=== PATIENT | female | born 1940 | race Caucasian/White ===

== ENCOUNTER 2017-12-03 16:07 | Inpatient (IN) | payer MEDICARE ==
[2017-12-03 17:37] LABS: Bilirubin Negative (Negative); Blood, Urine Negative (Negative); Clarity CLEAR (Clear); Glucose, Urine (Dipstick) >=1000 mg/dL (Negative); Leukocyte Negative (Negative); Nitrite Negative (Negative); Protein, Urine (Dipstick) Negative (Neg-Trace); Specific Gravity, Urine 1.031 (1.002-1.036)
[2017-12-03] MEDS ORDERED: Acetaminophen 325 MG TAB PO PRN (19:07)
[2017-12-03] MEDS ORDERED: Dextrose 5% in Water 1,000 ML IV PRN (19:07)
[2017-12-03] MEDS ORDERED: HYDROcodone/Acetaminophen 5/325 mg Tablet PO PRN (19:07)
[2017-12-03] MEDS ORDERED: Ondansetron ODT 4 MG TAB PO PRN (19:07)
[2017-12-03] MEDS ORDERED: Dextrose 50% Abboject 50 ML SYRINGE SLOW IVP PRN (19:07)
[2017-12-03] MEDS ORDERED: HYDROcodone/Acetaminophen 10/325 mg Tablet PO PRN (19:07)
[2017-12-03] MEDS ORDERED: Albuterol Sulfate 2.5 mg/3 ml Neb NEB PRN (19:11)
[2017-12-03 19:13] VITALS: BMI 41.4
[2017-12-03] MEDS ORDERED: Enoxaparin Sodium 40 MG/0.4 ML SYRINGE SC SCH (19:15)
[2017-12-03] MEDS: Simvastatin 5 MG TAB PO SCH (19:54)
[2017-12-03] MEDS: Nicotine 14 MG PATCH TD SCH (20:01)
[2017-12-03] MEDS: Brimonidine Tartrate 0.2% Ophth Soln 5 ml Bottle EA EYE SCH (21:10)
[2017-12-03] MEDS: Latanoprost 0.005% Ophth Soln 2.5 ml Bottle EA EYE SCH (21:10)
[2017-12-03] MEDS: HumaLOG 300 UNITS/3 ML VIAL SC PRN (21:12)
--- NOTE | 2017-12-03 23:19 | HP ---
TIME OF SERVICE: 1740. PRIMARY CARE PHYSICIAN: Dr. Salinas. CHIEF COMPLAINT: Shortness of breath. HISTORY OF PRESENT ILLNESS: Ms. Andino is a 77-year-old female transferred from the [facility]. She was actually admitted there from 11/16-11/25 for acute exacerbation of COPD. She received an tibiotics, steroids, nebulizer treatments, and was converted from inpatient to a swing bed for rehabi litation and discharged back to her assisted living facility on 11/25. She returned to the Emergency Department tonight for shortness of breath starting this afternoon. Sh e was notably 75% on room air, 88% on 2 liters and requiring 4 liters to get to 95%. She was subsequently transferred here. Her D-dimer there had been elevated at 0.75, CT angio showed right middle lobe pneumonia and she was sent here for "failure of outpatient therapy." On arrival here, she is afebrile. Vitals are stable. She is satting 95% on 4 liters and breathing c omfortably. She continues to smoke. She says she only smokes about 1/4 pack of cigarettes per day at present. S he did not tell me how much she smokes on a regular basis. No chest pain, no fevers or chills or rigors. No nausea, vomiting, diarrhea or constipation. PAST MEDICAL HISTORY: 1. COPD. 2. Tobacco abuse, ongoing. 3. Diabetes mellitus type 2, insulin-dependent. 4. Glaucoma. 5. Hyperlipidemia. 6. Hypertension. 7. Obesity. 8. Iron deficiency anemia. PAST SURGICAL HISTORY: Include; 1. Cholecystectomy in 1979. 2. Appendectomy in 1969. 3. Right cataract repair/lens replacement in 2006. HOME MEDICATIONS: 1. Norvasc 5 mg p.o. daily. 2. Aspirin 81 mg daily. 3. Benazepril 40 mg p.o. daily. 4. Dulcolax 5 mg p.o. daily with Alphagan 0.2% one drop each eye b.i.d. 5. Budesonide 180 mcg inhaler 2 puffs inhaled b.i.d. 6. DuoNeb q.4 hours. 7. Xalatan 0.005% 1 drop each eye at bedtime. 8. Metformin 1000 mg p.o. b.i.d. 9. Protonix 40 mg daily. 10. MiraLax 17 grams p.o. daily. 11. Prednisone taper. 12. Zocor 5 mg p.o. at bedtime. 13. Ultracet one tablet q.6 hours p.r.n. 14. Albuterol MDI p.r.n. 15. On 11/22, she was given some Kenalog. It looks like Kenalog cream. ALLERGIES: PENICILLIN, QUININE and SULFA. She has recently been on Bactrim and tolerated that fine. Despite this "SULFA allergy" FAMILY HISTORY: Significant for hypertension and COPD. No premature coronary disease. No history o f clotting or bleeding disorder. No immune dysfunction. SOCIAL HISTORY: Significant for tobacco ongoing as above. No alcohol or drug use. She lives in an assisted living center in [place]. She has smoked for over 50 years. REVIEW OF SYSTEMS: A 10-point review of systems was performed and negative for all other systems exc ept stated as per HPI. PHYSICAL EXAMINATION: VITAL SIGNS: Temperature 98.1, pulse 74, blood pressure 115/64, respiratory rate 20, satting 95% on 5 liters. GENERAL: She is awake. She is alert. She is oriented x3. She is an obese older white female, who appears to be in no acute distress. HEENT: Normocephalic and atraumatic. Pupils are equal and reactive bilaterally, mucous membranes ar e moist. She has no visible lesions, no thrush. Nasal cannula is in place. NECK: Supple, without lymphadenopathy, JVD, or thyromegaly with normal carotid upstrokes. I do not appreciate bruits. LUNGS: Has a slightly prolonged expiratory phase. No rhonchi. She does have some right lateral shona nt crackles. She has a slight end expiratory high-pitched wheezing. CARDIOVASCULAR: She is slightly tachycardic, but regular. Normal S1 and S2. She has a 2/6 systolic ejection murmur and 3/6 holosystolic murmur at the apex. The systolic ejection murmur is at the rig ht upper sternal border. ABDOMEN: Obese and it is nontender and nondistended with good bowel sounds. She has no rebound, rig idity or guarding. EXTREMITIES: Show no cyanosis, no clubbing, with 1+ bilateral lower extremity edema to the mid tibia l level. SKIN: Warm, moist and well perfused. No rashes, no lesions. MUSCULOSKELETAL: Normal to inspection. She has no joint inflammation. There were no palpable effus ions. NEUROLOGIC: Cranial nerves II-XII are grossly intact. She has normal speech pattern. She has 5/5 s trength and no focal deficits. LABORATORY DATA: Sodium 134, potassium 4.6, chloride 91, bicarbonate 33, BUN 6, creatinine 0.61, and glucose 218. Liver functions normal except for a total protein of 5.8 and albumin of 3.2. CBC show ed a white count normal at 7.2, hemoglobin 12.8, hematocrit 39.2 and platelets 386,000. She had a fa irly normal differential, 79% granulocytes, 1% bands, 9% lymphocytes, and 8% atypical lymphocytes. IMAGING DATA: CT angio showed a patchy right middle lobe infiltrate. Chest x-ray is unremarkable. ASSESSMENT AND PLAN: 1. Right middle lobe atypical infiltrate. The patient was recently treated with antibiotics, but we do not know which ones. We will place her on Levaquin, she has a normal white count and afebrile. We will repeat labs in the morning. 2. Acute exacerbation of chronic obstructive pulmonary disease, convert back to IV steroids with Stacey u-Medrol, q.4 hours DuoNebs and q.2 hours p.r.n., albuterol nebs. We will follow up in the morning. 3. Acute hypoxemic respiratory failure: Recurrent. She just weaned off oxygen. She is back on oxy gen now 4-5 liters. She may need oxygen in the foreseeable future. 4. Diabetes mellitus type 2. We will continue home medications, insulin sliding scale and diabetic diet. 5. Glaucoma. Continue drops. 6. Hyperlipidemia. We will continue her antihyperlipidemics. 7. Hypertension. We will continue home medications at present. The patient will be admitted to inpatient medical christy. We will follow up in the morning.
[2017-12-04 05:40] LABS: Anion Gap 12 mmol/L (10-20); BUN (Urea Nitrogen) 6 mg/dL (9.8-20.1); Calc. Creatinine Clearance 121 mL/min (70-130); Calcium 8.6 mg/dL (7.8-10.44); Carbon Dioxide 31 mmol/L (23-31); Chloride 95 mmol/L (98-107); Estimated GFR-MDRD Greater than 90; Glucose 229 mg/dL (83-110); Magnesium 1.6 mg/dL (1.6-2.6); Potassium 3.8 mmol/L (3.5-5.1); Sodium 134 mmol/L (136-145)
[2017-12-04] MEDS: HumaLOG 300 UNITS/3 ML VIAL SC PRN ×3 (05:52→16:56)
[2017-12-04 06:08] LABS: Band 2 % (5-11); Hemoglobin 12.6 g/dL (12.0-16.0); Lymphocytes 10 % (21-51); MDiff Complete? YES; Mean Corpuscular HGB CONC 31.1 g/dL (32.0-36.0); Mean Corpuscular Hemoglobin 29.4 pg (27.0-31.0); Mean Corpuscular Volume 94.4 fl (81.0-99.0); Mean Platelet Volume 6.7 fL (7.4-10.4); Monocytes 9 % (0-10); Neutrophil 79 % (42-75); Platelet Count 372 thou/uL (130-400); RBC Distribution Width 14.4 % (11.5-14.5); White Blood Cell (WBC) Count 3.4 thou/uL (4.8-10.8)
[2017-12-04] MEDS: metFORMIN 500 MG TAB PO SCH ×2 (08:26→16:55)
[2017-12-04] MEDS: Enoxaparin Sodium 40 MG/0.4 ML SYRINGE SC SCH (08:26)
[2017-12-04] MEDS: Aspirin 81 mg Enteric Coated Tablet PO SCH (08:26)
[2017-12-04] MEDS: Amlodipine 5 MG TAB PO SCH (08:27)
[2017-12-04] MEDS: Brimonidine Tartrate 0.2% Ophth Soln 5 ml Bottle EA EYE SCH ×2 (08:28→20:26)
[2017-12-04] MEDS: Bisacodyl 5 MG TAB PO SCH (08:28)
[2017-12-04] MEDS: Polyethylene Glycol 3350 17 GM Packet PO SCH (08:38)
[2017-12-04] MEDS ORDERED: Prevnar 13-Val Conj/PF 0.5 ML SYRINGE IM ONE (09:00)
[2017-12-04] MEDS ORDERED: FLU VACC TS2017-18 (>65YR) 0.5 ML SYRINGE IM ONE (09:00)
[2017-12-04] MEDS ORDERED: Magnesium 2 GM/NS 0.9% 50 ML 2 GM in Premix Bag 1 BAG IVPB SCH (09:00)
[2017-12-04] MEDS ORDERED: Magnesium 2 GM/NS 0.9% 100 ML 2 GM in Premix Bag 1 BAG IVPB SCH (10:00)
--- NOTE | 2017-12-04 14:26 | PDOC.PN ---
- Subjective Encounter Start Date: 12/04/17 Encounter Start Time: 11:40 Pt states breathing is better. No f/C, no n/V/D/C, no cough or sputum production. Wants to get up and walk. No overnight events, no new complaints 10 point ROS performed and neg for all systems except as per HPI - Objective Resuscitation Status: Resuscitation Status FULL:Full Resuscitation MAR Reviewed: Yes Vital Signs & Weight: Vital Signs (12 hours) Temp Pulse Resp BP BP Pulse Ox 12/04/17 13:43 101 H 18 91 L 12/04/17 13:34 97.8 F 103 H 20 112/68 92 L 12/04/17 08:30 137/79 12/04/17 08:27 99 137/79 12/04/17 08:00 98.1 F 99 18 137/79 93 L 12/04/17 07:13 97.9 F 85 16 12/04/17 06:11 85 16 92 L 12/04/17 04:00 97.9 F 96 18 149/72 H 93 L 12/04/17 02:41 92 16 94 L Weight Weight 184 lb 12.8 oz I&O: 12/03/17 12/04/17 12/05/17 06:59 06:59 06:59 Intake Total 1070 Balance 1070 Result Diagrams: 12/04/17 05:01 12/04/17 05:01 Additional Labs: Accuchecks 12/04/17 12/04/17 12/03/17 11:15 05:39 21:00 POC Glucose 299 H 201 H 270 H Radiology Reviewed by me: Yes EKG Reviewed by me: Yes Phys Exam - Physical Examination Constitutional: NAD HEENT: PERRLA, moist MMs, sclera anicteric, oral pharynx no lesions Neck: no nodes, no JVD, supple, full ROM Respiratory: no rales, no rhonchi end expiratory wheezes present, slightly prolonged expiration Cardiovascular: RRR, no significant murmur, no rub Gastrointestinal: soft, non-tender, no distention, positive bowel sounds Musculoskeletal: no edema, pulses present Neurological: non-focal, normal sensation, moves all 4 limbs Lymphatic: no nodes Psychiatric: normal affect, A&O x 3 Skin: no rash, normal turgor, cap refill <2 seconds Dx/Plan (1) Acute exacerbation of chronic obstructive pulmonary disease (COPD) Code(s): J44.1 - CHRONIC OBSTRUCTIVE PULMONARY DISEASE W (ACUTE) EXACERBATION Status: Acute Comment: nebs, steroids, O2. less O2 requirements today. mobilize (2) Diabetes type 2, controlled Code(s): E11.9 - TYPE 2 DIABETES MELLITUS WITHOUT COMPLICATIONS Status: Chronic Qualifiers: Diabetes mellitus complication status: without complication Diabetes mellitus multiple games dealer insulin use: without nursing home use Qualified Code(s): E11.9 - Type 2 diabetes mellitus without complications (3) Dyslipidemia Code(s): E78.5 - HYPERLIPIDEMIA, UNSPECIFIED Status: Chronic (4) Fe deficiency anemia Code(s): D50.9 - IRON DEFICIENCY ANEMIA, UNSPECIFIED Status: Chronic Qualifiers: Iron deficiency anemia type: chronic blood loss Qualified Code(s): D50.0 - Iron deficiency anemia secondary to blood loss (chronic) Comment: symptomatic anemia, s/p 2 unit PRBC (5) Glaucoma Code(s): H40.9 - UNSPECIFIED GLAUCOMA Status: Chronic Qualifiers: Glaucoma type: unspecified Laterality: bilateral Qualified Code(s): H40.9 - Unspecified glaucoma (6) Hypertension Code(s): I10 - ESSENTIAL (PRIMARY) HYPERTENSION Status: Chronic Qualifiers: Hypertension type: essential hypertension Qualified Code(s): I10 - Essential (primary) hypertension (7) Obesity (BMI 30.0-34.9) Code(s): E66.9 - OBESITY, UNSPECIFIED Status: Chronic (8) Osteoarthritis Code(s): M19.90 - UNSPECIFIED OSTEOARTHRITIS, UNSPECIFIED SITE Status: Chronic Qualifiers: Osteoarthritis location: unspecified site (9) Tobacco abuse Code(s): Z72.0 - TOBACCO USE Status: Chronic Comment: ongloing, no plan to stop - Plan cont current plan of care, continue antibiotics, PT/OT, respiratory therapy, out of bed/ambulate * .
--- NOTE | 2017-12-04 16:12 | PDOC.PN ---
- Subjective Encounter Start Date: 12/04/17 Encounter Start Time: 11:40 PT breathing better, weaned down to 2L NC, some cough, no CP, no f/C, no n/V/D/C , sputum yellowish. 10 point ROS performed and neg for all systems except as per HPI - Objective Resuscitation Status: Resuscitation Status FULL:Full Resuscitation MAR Reviewed: Yes Vital Signs & Weight: Vital Signs (12 hours) Temp Pulse Resp BP BP Pulse Ox 12/04/17 13:43 101 H 18 91 L 12/04/17 13:34 97.8 F 103 H 20 112/68 92 L 12/04/17 08:30 137/79 12/04/17 08:27 99 137/79 12/04/17 08:00 98.1 F 99 18 137/79 93 L 12/04/17 07:13 97.9 F 85 16 12/04/17 06:11 85 16 92 L Weight Weight 184 lb 12.8 oz I&O: 12/03/17 12/04/17 12/05/17 06:59 06:59 06:59 Intake Total 1070 Balance 1070 Result Diagrams: 12/05/17 04:56 12/05/17 04:56 Additional Labs: Accuchecks 12/04/17 12/04/17 12/03/17 11:15 05:39 21:00 POC Glucose 299 H 201 H 270 H Radiology Reviewed by me: Yes EKG Reviewed by me: Yes Phys Exam - Physical Examination Constitutional: NAD HEENT: PERRLA, moist MMs, sclera anicteric, oral pharynx no lesions Neck: no nodes, no JVD, supple, full ROM Respiratory: no wheezing, no rales, no rhonchi slightly prolonged expiration Cardiovascular: RRR, no significant murmur, no rub Gastrointestinal: soft, non-tender, no distention, positive bowel sounds Musculoskeletal: pulses present, edema present Neurological: non-focal, normal sensation, moves all 4 limbs Lymphatic: no nodes Psychiatric: normal affect, A&O x 3 Skin: no rash, normal turgor, cap refill <2 seconds Dx/Plan (1) Acute exacerbation of chronic obstructive pulmonary disease (COPD) Code(s): J44.1 - CHRONIC OBSTRUCTIVE PULMONARY DISEASE W (ACUTE) EXACERBATION Status: Acute Comment: nebs, steroids, O2. less O2 requirements today. mobilize (2) Diabetes type 2, controlled Code(s): E11.9 - TYPE 2 DIABETES MELLITUS WITHOUT COMPLICATIONS Status: Chronic Qualifiers: Diabetes mellitus complication status: without complication Diabetes mellitus termite renewal inspector insulin use: without senior care use Qualified Code(s): E11.9 - Type 2 diabetes mellitus without complications (3) Dyslipidemia Code(s): E78.5 - HYPERLIPIDEMIA, UNSPECIFIED Status: Chronic (4) Fe deficiency anemia Code(s): D50.9 - IRON DEFICIENCY ANEMIA, UNSPECIFIED Status: Chronic Qualifiers: Iron deficiency anemia type: chronic blood loss Qualified Code(s): D50.0 - Iron deficiency anemia secondary to blood loss (chronic) Comment: symptomatic anemia, s/p 2 unit PRBC (5) Glaucoma Code(s): H40.9 - UNSPECIFIED GLAUCOMA Status: Chronic Qualifiers: Glaucoma type: unspecified Laterality: bilateral Qualified Code(s): H40.9 - Unspecified glaucoma (6) Hypertension Code(s): I10 - ESSENTIAL (PRIMARY) HYPERTENSION Status: Chronic Qualifiers: Hypertension type: essential hypertension Qualified Code(s): I10 - Essential (primary) hypertension (7) Obesity (BMI 30.0-34.9) Code(s): E66.9 - OBESITY, UNSPECIFIED Status: Chronic (8) Osteoarthritis Code(s): M19.90 - UNSPECIFIED OSTEOARTHRITIS, UNSPECIFIED SITE Status: Chronic Qualifiers: Osteoarthritis location: unspecified site (9) Tobacco abuse Code(s): Z72.0 - TOBACCO USE Status: Chronic Comment: ongoing, no plan to stop - Plan cont current plan of care, continue antibiotics, PT/OT, respiratory therapy, out of bed/ambulate * .
[2017-12-04] MEDS: Nicotine 14 MG PATCH TD SCH (19:13)
[2017-12-04] MEDS: Simvastatin 5 MG TAB PO SCH (20:25)
[2017-12-04] MEDS: Latanoprost 0.005% Ophth Soln 2.5 ml Bottle EA EYE SCH (20:26)
[2017-12-05 05:36] LABS: Anion Gap 13 mmol/L (10-20); BUN (Urea Nitrogen) 8 mg/dL (9.8-20.1); Calc. Creatinine Clearance 109 mL/min (70-130); Calcium 9.1 mg/dL (7.8-10.44); Carbon Dioxide 33 mmol/L (23-31); Chloride 95 mmol/L (98-107); Estimated GFR-MDRD Greater than 90; Glucose 234 mg/dL (83-110); Magnesium 1.8 mg/dL (1.6-2.6); Potassium 3.7 mmol/L (3.5-5.1); Sodium 137 mmol/L (136-145)
[2017-12-05] MEDS: HumaLOG 300 UNITS/3 ML VIAL SC PRN ×3 (05:45→17:13)
[2017-12-05 05:46] LABS: Band 8 % (5-11); Hemoglobin 12.9 g/dL (12.0-16.0); Lymphocytes 5 % (21-51); MDiff Complete? YES; Mean Corpuscular HGB CONC 31.6 g/dL (32.0-36.0); Mean Corpuscular Hemoglobin 29.7 pg (27.0-31.0); Mean Corpuscular Volume 94.1 fl (81.0-99.0); Mean Platelet Volume 6.8 fL (7.4-10.4); Monocytes 5 % (0-10); Neutrophil 82 % (42-75); Platelet Count 421 thou/uL (130-400); RBC Distribution Width 14.6 % (11.5-14.5); Red Blood Cell (RBC) Count 4.33 mill/uL (4.20-5.40); White Blood Cell (WBC) Count 6.4 thou/uL (4.8-10.8)
[2017-12-05] MEDS: Polyethylene Glycol 3350 17 GM Packet PO SCH (08:19)
[2017-12-05] MEDS: Brimonidine Tartrate 0.2% Ophth Soln 5 ml Bottle EA EYE SCH ×2 (08:19→20:15)
[2017-12-05] MEDS: metFORMIN 500 MG TAB PO SCH ×2 (08:19→17:12)
[2017-12-05] MEDS: Aspirin 81 mg Enteric Coated Tablet PO SCH (08:20)
[2017-12-05] MEDS: Bisacodyl 5 MG TAB PO SCH (08:20)
[2017-12-05] MEDS: Amlodipine 5 MG TAB PO SCH (08:20)
[2017-12-05] MEDS: Enoxaparin Sodium 40 MG/0.4 ML SYRINGE SC SCH (08:21)
--- NOTE | 2017-12-05 12:53 | PDOC.PN ---
- Subjective Encounter Start Date: 12/05/17 Encounter Start Time: 10:30 Pt sleeping soundly, no overnight event,s no wheezing, no CP, no SOB, getting up and around the room without problems. No F/C, cough, no sputum, no abd pain , no N/v/D/C 10 point ROS performed and neg for all systems except as above - Objective Resuscitation Status: Resuscitation Status FULL:Full Resuscitation MAR Reviewed: Yes Vital Signs & Weight: Vital Signs (12 hours) Temp Pulse Resp BP Pulse Ox 12/05/17 12:39 90 L 12/05/17 08:00 97.2 F L 104 H 16 124/74 93 L 12/05/17 07:05 100 16 92 L 12/05/17 01:39 12 Weight Weight 184 lb 12.8 oz I&O: 12/04/17 12/05/17 12/06/17 06:59 06:59 06:59 Intake Total 1070 1320 Output Total 0 Balance 1070 1320 Result Diagrams: 12/05/17 04:56 12/05/17 04:56 Additional Labs: Accuchecks 12/05/17 12/05/17 12/04/17 11:16 04:29 20:39 POC Glucose 258 H 188 H 189 H 12/04/17 16:36 POC Glucose 209 H Radiology Reviewed by me: Yes Phys Exam - Physical Examination Constitutional: NAD HEENT: PERRLA, moist MMs, sclera anicteric, oral pharynx no lesions Neck: no nodes, no JVD, supple, full ROM Respiratory: no wheezing, no rales, no rhonchi, clear to auscultation bilateral Cardiovascular: RRR, no significant murmur, no rub Gastrointestinal: soft, non-tender, no distention, positive bowel sounds Musculoskeletal: pulses present, edema present Neurological: non-focal, normal sensation, moves all 4 limbs Lymphatic: no nodes Psychiatric: normal affect, A&O x 3 Skin: no rash, normal turgor, cap refill <2 seconds Dx/Plan (1) Acute exacerbation of chronic obstructive pulmonary disease (COPD) Code(s): J44.1 - CHRONIC OBSTRUCTIVE PULMONARY DISEASE W (ACUTE) EXACERBATION Status: Acute Comment: nebs, steroids, O2. 2L NC. home O2 eval. Home when arranged (2) Diabetes type 2, controlled Code(s): E11.9 - TYPE 2 DIABETES MELLITUS WITHOUT COMPLICATIONS Status: Chronic Qualifiers: Diabetes mellitus complication status: without complication Diabetes mellitus senior care insulin use: without senior care use Qualified Code(s): E11.9 - Type 2 diabetes mellitus without complications (3) Dyslipidemia Code(s): E78.5 - HYPERLIPIDEMIA, UNSPECIFIED Status: Chronic (4) Fe deficiency anemia Code(s): D50.9 - IRON DEFICIENCY ANEMIA, UNSPECIFIED Status: Chronic Qualifiers: Iron deficiency anemia type: chronic blood loss Qualified Code(s): D50.0 - Iron deficiency anemia secondary to blood loss (chronic) Comment: symptomatic anemia, s/p 2 unit PRBC (5) Glaucoma Code(s): H40.9 - UNSPECIFIED GLAUCOMA Status: Chronic Qualifiers: Glaucoma type: unspecified Laterality: bilateral Qualified Code(s): H40.9 - Unspecified glaucoma (6) Hypertension Code(s): I10 - ESSENTIAL (PRIMARY) HYPERTENSION Status: Chronic Qualifiers: Hypertension type: essential hypertension Qualified Code(s): I10 - Essential (primary) hypertension (7) Obesity (BMI 30.0-34.9) Code(s): E66.9 - OBESITY, UNSPECIFIED Status: Chronic (8) Osteoarthritis Code(s): M19.90 - UNSPECIFIED OSTEOARTHRITIS, UNSPECIFIED SITE Status: Chronic Qualifiers: Osteoarthritis location: unspecified site (9) Tobacco abuse Code(s): Z72.0 - TOBACCO USE Status: Chronic Comment: ongoing, no plan to stop - Plan cont current plan of care, PT/OT, respiratory therapy, out of bed/ambulate * .
[2017-12-05] MEDS: Nicotine 14 MG PATCH TD SCH (18:34)
[2017-12-05] MEDS: Latanoprost 0.005% Ophth Soln 2.5 ml Bottle EA EYE SCH (20:15)
[2017-12-05] MEDS: Simvastatin 5 MG TAB PO SCH (20:15)
[2017-12-06] MEDS: HumaLOG 300 UNITS/3 ML VIAL SC PRN (07:13)
[2017-12-06] MEDS: Aspirin 81 mg Enteric Coated Tablet PO SCH (08:10)
[2017-12-06] MEDS: Bisacodyl 5 MG TAB PO SCH (08:10)
[2017-12-06] MEDS: Polyethylene Glycol 3350 17 GM Packet PO SCH (08:10)
[2017-12-06] MEDS: metFORMIN 500 MG TAB PO SCH (08:10)
[2017-12-06] MEDS: Amlodipine 5 MG TAB PO SCH (08:10)
[2017-12-06] MEDS: Enoxaparin Sodium 40 MG/0.4 ML SYRINGE SC SCH (08:11)
[2017-12-06] MEDS: Brimonidine Tartrate 0.2% Ophth Soln 5 ml Bottle EA EYE SCH (08:11)
[2017-12-06 11:17] VITALS: BP 136/77; TEMP 98.1
--- NOTE | 2017-12-06 21:03 | DIS ---
DATE OF ADMISSION: 12/03/2017 DATE OF DISCHARGE: 12/06/2017 PRIMARY CARE PHYSICIAN: Dr. Ifrah aSlinas. DISCHARGE DIAGNOSES: 1. Right middle lobe pneumonia. 2. Acute exacerbation of chronic obstructive pulmonary disease. 3. Acute hypoxemic respiratory failure. 4. Ongoing tobacco abuse. 5. Chronic obstructive pulmonary disease. 6. Diabetes mellitus type 2, insulin-dependent. 7. Glaucoma. 8. Hyperlipidemia. 9. Hypertension. 10. Severe obesity. 11. Iron deficiency anemia. CONSULTATIONS: None. PROCEDURES: None. HOSPITAL COURSE: Ms. Andino is a pleasant 77-year-old white female who was recently admitted to [facility] there for acute exacerbation of COPD and influenza. She was discharged home from initial inpatient and then a swing bed rehabilitation status on 11/25. She got progressively more short of breath and presented to our Emergency Department in transfer on 0 12/03/2017 for further evaluation. She was found to be in some respiratory distress, right middle lob e pneumonia, hypoxic and was admitted. HOSPITAL COURSE: The patient was seen and examined by me in the Emergency Department, she started ba ck on IV steroids, neb treatments, IV antibiotics and was admitted to the hospital. On 12/03-09/03, the patient markedly improved. Breathing was almost back to her baseline, but was st ill requiring oxygen. She was given antibiotics, nebs and steroids. By, 12/05, her breathing status was continued to impro ve. She was down to 2 liters of oxygen and was asking when she got to go home. She was arranged for home oxygen, was found to be in the mid 80s on room air, and by 12/06, home oxygen was set up, and s he was stable for discharge back to her assisted living facility. PHYSICAL EXAMINATION: The patient was seen and examined on the day of discharge. Discharge plan and disposition were discussed with the patient [id number] at the bedside. DISCHARGE MEDICATIONS: 1. Tylenol Arthritis as needed. 2. Albuterol 2.5 mg nebulized every 2 hours as needed for shortness of breath. 3. Albuterol sulfate inhaler 2 puffs every 6 hours as needed when not on the nebs. 4. Norvasc 5 mg daily. 5. Aspirin 81 mg daily. 6. Benazepril 40 mg daily. 7. Tessalon 100 mg p.o. t.i.d. p.r.n. cough. 8. Bisacodyl 5 mg daily. 9. Brimonidine tartrate/atenolol 1 drop each eye b.i.d. 10. Fish oil 1000 mg p.o. daily. 11. DuoNebs 3 mL q.i.d. nebulized q.i.d. 12. Xalatan 0.005% one drop each eye at bedtime. 13. Levofloxacin 750 mg p.o. day for 3 more days. 14. Metformin 1000 mg p.o. b.i.d. 15. Protonix 40 mg daily. 16. MiraLax 17 grams daily. 17. Prednisone 20 mg p.o. q.a.m. 18. Zocor 5 mg p.o. at bedtime. 19. Tramadol/acetaminophen 1 tab daily as needed for pain. FOLLOWUP APPOINTMENTS: Primary care physician within a week. DISCHARGE CONDITION: Good. DISCHARGE DISPOSITION: Being discharged to [facility] with home O2. DISCHARGE DIET: Heart healthy recommended. DISCHARGE ACTIVITY: As tolerated. We have recommended the patient stop smoking, but she has no inte ntion.
== END 2017-12-06 12:21 | disposition home health service (06) | DRG 193 ==
LOC: ERS 16:07 → T4-B 17:12
PROVIDERS: ADMIT Internal Medicine Infectious Disease; ATTEND Internal Medicine Infectious Disease
DX: J18.1 Lobar pneumonia, unspecified organism (principal); J96.01 Acute respiratory failure with hypoxia; J44.0 Chronic obstructive pulmonary disease with (acute) lower respiratory infection; Z68.41 Body mass index [BMI] 40.0-44.9, adult; E11.9 Type 2 diabetes mellitus without complications; D50.0 Iron deficiency anemia secondary to blood loss (chronic); J44.1 Chronic obstructive pulmonary disease with (acute) exacerbation; Z99.81 Dependence on supplemental oxygen; F17.210 Nicotine dependence, cigarettes, uncomplicated; H40.9 Unspecified glaucoma; E66.9 Obesity, unspecified; Z79.4 Long term (current) use of insulin; I10 Essential (primary) hypertension
CPT/HCPCS: 36415; 36416; 80048; 81003; 83605; 83735; 85025; 87040; 87086; 94640; 96365; A4216; J1650; J1956; J2920; J3370; J3475; J7620

== ENCOUNTER 2017-12-16 16:02 | Observation (INO) | payer MEDICARE ==
[2017-12-16] MEDS ORDERED: ISOVUE-370 76%-LOCM 1 ML ONE (16:47)
[2017-12-16 18:37] LABS: #Basophils 0.1 thou/uL (0.0-0.2); #Eosinphils 0.1 thou/uL (0.0-0.7); #Lymphocytes 1.5 thou/uL (1.20-3.40); #Monocytes 0.8 thou/uL (0.11-0.59); #Neutrophils 6.5 thou/uL (1.40-6.50); %Basophils 0.6 % (0.0-1.0); %Eosinophils 1.1 % (0.0-10.0); %Lymphocytes 16.7 % (21.0-51.0); %Monocytes 8.5 % (0.0-10.0); %Neutrophils 73.1 % (42.0-75.0); Hemoglobin 13.6 g/dL (12.0-16.0); Mean Corpuscular HGB CONC 31.3 g/dL (32.0-36.0); Mean Corpuscular Hemoglobin 29.3 pg (27.0-31.0); Mean Corpuscular Volume 93.6 fl (81.0-99.0); Mean Platelet Volume 7.5 fL (7.4-10.4); Platelet Count 288 thou/uL (130-400); RBC Distribution Width 13.3 % (11.5-14.5); Red Blood Cell (RBC) Count 4.65 mill/uL (4.20-5.40); White Blood Cell (WBC) Count 8.9 thou/uL (4.8-10.8)
[2017-12-16] MEDS ORDERED: Clindamycin/D5W 600 mg/50 ml Premix Bag ONE (18:45)
[2017-12-16] MEDS ORDERED: Morphine 2 MG/ML SYRINGE ONE (18:45)
[2017-12-16 18:58] LABS: ALT (SGPT) 12 U/L (8-55); AST (SGOT) 9 U/L (5-34); Albumin 3.3 g/dL (3.4-4.8); Alkaline Phosphatase 83 U/L (40-150); Anion Gap 16 mmol/L (10-20); BUN (Urea Nitrogen) 5 mg/dL (9.8-20.1); Bilirubin, Total 0.4 mg/dL (0.2-1.2); Calc. Creatinine Clearance 0 mL/min (70-130); Calcium 9.2 mg/dL (7.8-10.44); Carbon Dioxide 28 mmol/L (23-31); Chloride 99 mmol/L (98-107); Estimated GFR-MDRD Greater than 90; Globulin 2.5 g/dL (2.4-3.5); Glucose 109 mg/dL (83-110); Potassium 4.6 mmol/L (3.5-5.1); Protein, Total 5.8 g/dL (6.0-8.3); Sodium 138 mmol/L (136-145)
[2017-12-16 19:44] LABS: Bacteria/HPF None Seen HPF (None Seen); Bilirubin Negative (Negative); Blood, Urine Negative (Negative); Clarity CLEAR (Clear); Glucose, Urine (Dipstick) Negative (Negative); Hyaline Casts/LPF 0-3 HYALINE CAST LPF (0-3 Hyaline); Leukocyte Trace (Negative); Nitrite Negative (Negative); Protein, Urine (Dipstick) Negative (Neg-Trace); Specific Gravity, Urine 1.014 (1.002-1.036); Squamous Epithelial None Seen HPF (0-3); WBC/HPF 0-3 HPF (0-3); pH, Urine 7.5 (5.0-9.0)
--- NOTE | 2017-12-16 20:29 | ULT ---
BILATERAL LOWER EXTREMITY VENOUS DUPLEX EXAM: 12/16/17 HISTORY: Lower extremity pain, redness and edema. Deep veins evaluated with ultrasound, color doppler, spectral analysis and compression. Deep veins of both lower extremities show normal compression and blood flow. No evidence of DVT ident ified. IMPRESSION: No evidence of DVT. POS: [facility]
[2017-12-16] MEDS ORDERED: Cefepime 2 GM/10 ML SYR ONE (22:30)
--- NOTE | 2017-12-16 22:46 | CT ---
CT ANGIO ABDOMEN AND PELVIS AND LOWER EXTREMITIES: 12/16/17 Multiple axial tomograms obtained through the abdomen and pelvis and lower extremities following gisel o protocol with multiplanar reconstructions and 3D postprocessing. HISTORY: Arterial insufficiency. Pain in both lower extremities. FINDINGS: The abdominal aorta shows atherosclerotic changes. No evidence of aneurysmal dilatation. No evidence of dissection. No significant stenosis seen at the origin of the celiac artery os superior mesenteric artery. There is calcification at the origin of both renal arteries, although no definite renal leola ry stenosis identified. The aortic bifurcation is patent with no focal stenosis. RIGHT LOWER EXTREMITY: The right external and internal iliac show diffuse atherosclerotic calcification. There is evidence o f significant stenosis in the proximal right external iliac of greater than 50%. Diffuse calcification in the right femoral artery with moderate stenosis approaching 50%. There are calcified plaque at the origin of the right superficial femoral artery producing moderate s tenosis approaching 50%. Diffuse atherosclerotic changes throughout the right supraficial femoral artery. There is evidence of moderate stenosis of at least 50% diameter in the proximal thigh. Numerous areas of mild stenosis th roughout the right superficial femoral artery. Right popliteal artery shows diffuse disease with mild stenosis at the joint space. Significant sten osis in the distal right popliteal below the joint space of at least 50%. Popliteal trifurcates below the knee. There is three vessel runoff to the foot with diffuse disease s een throughout all three vessels. LEFT LOWER EXTREMITY: Diffuse atherosclerotic changes seen in internal and external iliacs with moderate disease in the lef t external iliac of at least 50%. Mild to moderate stenosis in the left common femoral and proximal left superficial femoral. Diffuse d isease throughout the left superficial femoral with numerous areas of mild stenosis. Mild stenosis in the left popliteal. Significant stenosis in the left popliteal below the joint space of at least 50%. Popliteal trifurcat es and there is three vessel runoff to the ankle and foot with diffuse disease throughout all three a rteries. SOFT TISSUES: Liver, spleen, pancreas, adrenal glands and kidneys are unremarkable. Bowel loops are unremarkable. IMPRESSION: 1. Moderate atherosclerotic disease throughout all arteries. 2. Evidence of hemodynamically significant stenosis seen in the right external iliac, right supe rficial femoral artery and right popliteal as describe above. 3. Evidence of significant stenosis in the left eternal iliac and left superficial femoral arter y as described. POS: [facility]
[2017-12-16] MEDS ORDERED: Cefepime 2 GM, Syringe 2.5 ML in Sterile Water 10 ML SLOW IVP SCH (23:00)
[2017-12-17] MEDS ORDERED: Ondansetron ODT 4 MG TAB SL PRN (00:48)
[2017-12-17] MEDS ORDERED: Ondansetron HCl/PF 4 MG/2 ML Vial IVP PRN (00:48)
[2017-12-17] MEDS ORDERED: Aspirin 325 MG TAB PO SCH (01:00)
[2017-12-17 01:45] VITALS: BMI 33.5
[2017-12-17] MEDS ORDERED: Calcium Carbonate 500 MG ChewTAB PO PRN (02:43)
[2017-12-17] MEDS ORDERED: Sodium Chloride 0.9% 1,000 ML IV SCH (02:43)
[2017-12-17] MEDS ORDERED: HumaLOG 300 UNITS/3 ML VIAL SC PRN (02:43)
[2017-12-17] MEDS ORDERED: HYDROcodone/Acetaminophen 5/325 mg Tablet PO PRN (02:43)
[2017-12-17] MEDS ORDERED: Dextrose 50% Abboject 50 ML SYRINGE SLOW IVP PRN (02:43)
[2017-12-17] MEDS ORDERED: Acetaminophen 325 MG TAB PO PRN (02:43)
[2017-12-17] MEDS ORDERED: Dextrose 5% in Water 1,000 ML IV PRN (02:43)
[2017-12-17] MEDS: Nicotine 14 MG PATCH TD SCH (03:23)
[2017-12-17 03:26] LABS: #Eosinphils 0.1 thou/uL (0.0-0.7); #Monocytes 0.6 thou/uL (0.11-0.59); #Neutrophils 5.6 thou/uL (1.40-6.50); %Basophils 0.3 % (0.0-1.0); %Eosinophils 1.2 % (0.0-10.0); %Lymphocytes 13.7 % (21.0-51.0); %Monocytes 8.5 % (0.0-10.0); %Neutrophils 76.3 % (42.0-75.0); Hemoglobin 12.9 g/dL (12.0-16.0); Mean Corpuscular HGB CONC 31.4 g/dL (32.0-36.0); Mean Corpuscular Hemoglobin 29.3 pg (27.0-31.0); Mean Corpuscular Volume 93.3 fl (81.0-99.0); Mean Platelet Volume 7.5 fL (7.4-10.4); Platelet Count 274 thou/uL (130-400); RBC Distribution Width 13.6 % (11.5-14.5); White Blood Cell (WBC) Count 7.3 thou/uL (4.8-10.8)
[2017-12-17 03:45] LABS: Anion Gap 11 mmol/L (10-20); BUN (Urea Nitrogen) 7 mg/dL (9.8-20.1); Calc. Creatinine Clearance 120 mL/min (70-130); Calcium 8.7 mg/dL (7.8-10.44); Carbon Dioxide 30 mmol/L (23-31); Chloride 100 mmol/L (98-107); Estimated GFR-MDRD Greater than 90; Glucose 198 mg/dL (83-110); Potassium 3.8 mmol/L (3.5-5.1); Sodium 137 mmol/L (136-145)
[2017-12-17] MEDS ORDERED: Vancomycin HCl 1.25 GM in Sodium Chloride 0.9% 250 ML 250 ML IVPB SCH (04:00)
--- NOTE | 2017-12-17 07:49 | HP ---
CHIEF COMPLAINT: Bilateral leg pain and redness. BRIEF HOSPITAL COURSE: This is a 77-year-old pleasant lady who was apparently in usual state of heal th, came into the hospital for pain and redness of both the legs. She does not know when it exactly started, but she knows that started a few days back and has become progressively worse. The patient was recently discharged from our facility after being treated for right middle lobe pneumonia on the 12/06 and COPD exacerbation. The patient right now complains of some chills. No fever. The patient denies any nausea or vomiting. PAST MEDICAL HISTORY: Significant for COPD, tobacco use, diabetes mellitus, glaucoma, hyperlipidemia , hypertension, obesity, iron deficiency anemia. PAST SURGICAL HISTORY: Cholecystectomy, appendectomy, and right cataract repairs and replacement. HOME MEDICATIONS: Include Norvasc 5 mg p.o. daily, aspirin, benazepril, Dulcolax, budesonide, DuoNeb , Xalatan, metformin, Protonix, MiraLax, prednisone taper, Zocor, Ultracet, albuterol. ALLERGIES: PENICILLIN, COUMADIN, SULFA. She is recently being on Bactrim and tolerated that fine de spite of SULFA allergy. FAMILY HISTORY: Significant for hypertension, COPD. No premature coronary artery disease. SOCIAL HISTORY: Significant for ongoing tobacco use. No alcohol or drug use. She lives in assisted facility in [place]. REVIEW OF SYSTEMS: Significant for bilateral leg pain and redness and some chills. Otherwise, no fe kvng, no headache, no appetite, no hearing, no latencies. No cough, no chest pain, diarrhea, dysuria, or polyuria. No memory or mood changes. No neck pain. PHYSICAL EXAMINATION: VITAL SIGNS: Blood pressure is 137/92, pulse is 112, respirations 20, temperature 98, afebrile. GENERAL: Patient is lying in bed, in mild distress because of the pain. HEENT: Atraumatic, normocephalic. Pupils equally round and react to light. Extraocular movements a re intact. Mucous membranes are moist. NECK: Supple. No JVD. CHEST: Breath sounds. There are no rales or rhonchi. HEART: S1, S2. No murmurs or gallops. ABDOMEN: Soft, obese. EXTREMITIES: There is bilateral erythema up to the level of the knees bilaterally, some mild edema. Distal pulses are hard to palpate. There are some cyanotic changes of the right great toe. The pat ient has normal range of motion though. NEUROLOGIC: Patient is alert, oriented to time, place, and person. No focal neurological motor or s ensory motor deficits. Cranial nerves: No cranial nerve deficits noted. The patient is hard of hea ring. LABORATORY DATA: CT angiogram of the abdomen and pelvis and lower extremity shows moderate atheroscl erosis diffuse throughout arteries, evidence of hemodynamically significant stenosis seen in right ex ternal iliac, right superior femoral artery and right popliteal as described above, evidence of signi ficant stenosis in the left internal iliac and the left superior femoral artery. Patient's Doppler w as negative for DVT. Patient's UA was clear. BNP was 23. Sodium was 138, potassium was 4.6, creati nine was 0.53. LFTs are normal. WBC count is 8.9, hemoglobin is 13.6. ASSESSMENT AND PLAN: 1. Cellulitis, bilateral lower extremities in the phase of peripheral vascular disease. We will con sult CVGS surgeon. We will consult Dr. Finch. We will give some pain medication and IV antibiotics in the form of vancomycin and cefepime. We will follow Dr. Finch' recommendation for duration of the rapy. 2. Diabetes mellitus, on insulin sliding scale. 3. Recent pneumonia during chronic obstructive pulmonary disease, stable. 4. Tobacco use, stable. 5. Hyperlipidemia, stable. 6. Hypertension, stable. 7. Iron deficiency anemia, stable. We will do Lovenox for deep venous thrombosis prophylaxis. I wi ll work with the consultants and further caring for the patient.
[2017-12-17] MEDS ORDERED: Benzonatate 100 MG CAP PO PRN (07:58)
[2017-12-17] MEDS ORDERED: PROVENTIL INHALER 6.7 G (200 INHALATIONS) INH PRN (07:58)
[2017-12-17] MEDS: Fish Oil 1,000 MG CAP PO SCH (08:38)
[2017-12-17] MEDS: Aspirin 81 mg Enteric Coated Tablet PO SCH (08:38)
[2017-12-17] MEDS: Amlodipine 5 MG TAB PO SCH (08:38)
[2017-12-17] MEDS: Docusate 100 MG CAP PO SCH ×2 (08:38→21:02)
[2017-12-17] MEDS: Bisacodyl 5 MG TAB PO SCH (08:40)
[2017-12-17] MEDS: Polyethylene Glycol 3350 17 GM Packet PO SCH (08:40)
[2017-12-17] MEDS: Timolol 0.5% Ophth Soln 5 ml Bottle EA EYE SCH ×2 (08:40→21:04)
[2017-12-17] MEDS: Brimonidine Tartrate 0.2% Ophth Soln 5 ml Bottle EA EYE SCH ×2 (08:41→21:03)
[2017-12-17] MEDS: Nystatin Powder 15 GM BOT TOP SCH ×2 (08:54→21:20)
--- NOTE | 2017-12-17 10:56 | PDOC.PN ---
- Subjective Encounter Start Date: 12/17/17 Encounter Start Time: 10:54 Subjective: feels Ok. leg pain is lsightly better -: no fever/chills.no new complaints - Objective MAR Reviewed: Yes Vital Signs & Weight: Vital Signs (12 hours) Temp Pulse Resp BP BP BP Pulse Ox 12/17/17 08:40 111 H 130/82 12/17/17 08:38 111 H 130/82 12/17/17 07:17 98.1 F 111 H 18 130/82 92 L 12/17/17 01:59 97.5 F L 98 20 92 L 12/17/17 01:29 97.5 F L 98 20 109/70 92 L 12/17/17 00:54 92 L Weight Weight 182 lb 3.005 oz I&O: 12/16/17 12/17/17 12/18/17 06:59 06:59 06:59 Intake Total 640 Output Total 500 Balance 140 Result Diagrams: 12/17/17 03:10 12/17/17 03:10 Additional Labs: Microbiology 12/03/17 17:20 Urine voided Urine Culture - Final NO GROWTH AT 48 HOURS 12/03/17 17:01 Venous blood - Right Arm Blood Culture - Final NO GROWTH IN 5 DAYS 12/03/17 16:46 Venous blood - Right Arm Blood Culture - Final NO GROWTH IN 5 DAYS 12/03/17 16:40 Nasal swab Influenza Types A,B Direct EIA - Final Radiology Reviewed by me: Yes Phys Exam - Physical Examination Constitutional: NAD HEENT: PERRLA, moist MMs, sclera anicteric, oral pharynx no lesions Neck: no nodes, no JVD, supple, full ROM Respiratory: no wheezing, no rales, no rhonchi, clear to auscultation bilateral Cardiovascular: RRR, no significant murmur, no rub, gallop, irregular Gastrointestinal: soft, non-tender, no distention, positive bowel sounds Musculoskeletal: no edema, pulses present Neurological: non-focal, normal sensation, moves all 4 limbs Psychiatric: normal affect, A&O x 3 Deviation from normal: b/l Leg erythema Dx/Plan (1) Cellulitis Code(s): L03.90 - CELLULITIS, UNSPECIFIED Status: Acute Qualifiers: Site of cellulitis: extremity Site of cellulitis of extremity: lower extremity (2) PAD (peripheral artery disease) Code(s): I73.9 - PERIPHERAL VASCULAR DISEASE, UNSPECIFIED Status: Chronic (3) COPD (chronic obstructive pulmonary disease) with acute bronchitis Code(s): J44.0 - CHRONIC OBSTRUCTIVE PULMON DISEASE W ACUTE LOWER RESP INFCT; J20.9 - ACUTE BRONCHITIS, UNSPECIFIED Status: Chronic (4) Physical deconditioning Code(s): R53.81 - OTHER MALAISE Status: Chronic (5) Diabetes type 2, controlled Code(s): E11.9 - TYPE 2 DIABETES MELLITUS WITHOUT COMPLICATIONS Status: Chronic Qualifiers: Diabetes mellitus complication status: without complication Diabetes mellitus halfway insulin use: without halfway use Qualified Code(s): E11.9 - Type 2 diabetes mellitus without complications (6) Dyslipidemia Code(s): E78.5 - HYPERLIPIDEMIA, UNSPECIFIED Status: Chronic (7) Fe deficiency anemia Code(s): D50.9 - IRON DEFICIENCY ANEMIA, UNSPECIFIED Status: Chronic Qualifiers: Iron deficiency anemia type: chronic blood loss Qualified Code(s): D50.0 - Iron deficiency anemia secondary to blood loss (chronic) (8) Glaucoma Code(s): H40.9 - UNSPECIFIED GLAUCOMA Status: Chronic Qualifiers: Glaucoma type: unspecified Laterality: bilateral Qualified Code(s): H40.9 - Unspecified glaucoma (9) Hypertension Code(s): I10 - ESSENTIAL (PRIMARY) HYPERTENSION Status: Chronic Qualifiers: Hypertension type: essential hypertension Qualified Code(s): I10 - Essential (primary) hypertension (10) Obesity (BMI 30.0-34.9) Code(s): E66.9 - OBESITY, UNSPECIFIED Status: Chronic (11) Osteoarthritis Code(s): M19.90 - UNSPECIFIED OSTEOARTHRITIS, UNSPECIFIED SITE Status: Chronic Qualifiers: Osteoarthritis location: unspecified site (12) Tobacco abuse Code(s): Z72.0 - TOBACCO USE Status: Chronic Comment: ongoing, no plan to stop - Plan continue antibiotics, PT/OT, psychosocial rehabilitation counselor, respiratory therapy, incentive spirometry, out of bed/ambulate cont ABx.likley arterial insufficeincy causing the skin changes -: CTVS to see for possible intervention -: cont supportive care -: restart home meds .Nebs prn.COPD compensated for now -: am labs.Ot,PT * . Review of Systems - Review of Systems Constitutional: weakness, malaise. negative: fever, chills, sweats, other Eyes: negative: Pain, Vision Change, Conjunctivae Inflammation, Eyelid Inflammation, Redness, Other ENT: negative: Ear Pain, Ear Discharge, Nose Pain, Nose Discharge, Nose Congestion, Mouth Pain, Mouth Swelling, Throat Pain, Throat Swelling, Other Respiratory: negative: Cough, Dry, Shortness of Breath, Hemoptysis, SOB with Excertion, Pleuritic Pain, Sputum, Wheezing Cardiovascular: negative: chest pain, palpitations, orthopnea, paroxysmal nocturnal dyspnea, edema, light headedness, other Gastrointestinal: negative: Nausea, Vomiting, Abdominal Pain, Diarrhea, Constipation, Melena, Hematochezia, Other Genitourinary: negative: Dysuria, Frequency, Incontinence, Hematuria, Retention , Other Musculoskeletal: Leg Pain. negative: Neck Pain, Shoulder Pain, Arm Pain, Back Pain, Hand Pain, Foot Pain, Other Skin: Rash - Medications/Allergies Allergies/Adverse Reactions: Allergies Allergy/AdvReac Type Severity Reaction Status Date / Time penicillin V potassium Allergy Verified 01/26/14 04:54 [From Gerry-Regina K] quinine Allergy Verified 01/26/14 04:54 Sulfa (Sulfonamide Allergy Verified 12/04/17 01:50 Antibiotics) Medications: Current Medications Acetaminophen (Tylenol) 650 mg PO Q4H PRN PRN Reason: Headache/Fever or Pain Hydrocodone Bitart/Acetaminophen ([place] 5/325) 1 tab PO Q4H PRN PRN Reason: Moderate Pain (4-6) Albuterol Sulfate (Proventil Hfa) 2 puff INH Q6H PRN PRN Reason: SOB &/or Wheezing Albuterol/Ipratropium (Duoneb) 3 ml NEB Q6H PRN PRN Reason: SOB &/or Wheezing Albuterol/Ipratropium (Duoneb) 3 ml NEB QIDPRN PRN PRN Reason: SOB &/or Wheezing Amlodipine Besylate (Norvasc) 5 mg PO DAILY [facility] Last Admin: 12/17/17 08:38 Dose: 5 mg Aspirin (Ecotrin) 81 mg PO DAILY [facility] Last Admin: 12/17/17 08:38 Dose: 81 mg Benzonatate (Tessalon) 100 mg PO TIDPRN PRN PRN Reason: Cough Bisacodyl (Dulcolax) 5 mg PO DAILY [facility] Last Admin: 12/17/17 08:40 Dose: Not Given Brimonidine Tartrate (Alphagan 0.2% Ophth Soln) 1 drop EA EYE BID [facility] Last Admin: 12/17/17 08:41 Dose: 1 drop Calcium Carbonate (Tums) 1,000 mg PO Q4H PRN PRN Reason: Heartburn or Indigestion Dextrose/Water (Dextrose 50%) 25 gm SLOW IVP PRN PRN PRN Reason: Hypoglycemia Docusate Sodium (Colace) 100 mg PO BID [facility] Last Admin: 12/17/17 08:38 Dose: 100 mg Fish Oil (Fish Oil) 1,000 mg PO DAILY [facility] Last Admin: 12/17/17 08:38 Dose: 1,000 mg Glucagon (Glucagon) 1 mg IM PRN PRN PRN Reason: Hypoglycemia Dextrose/Water (D5w) 1,000 mls @ 0 mls/hr IV .Q0M PRN; As Directed PRN Reason: Hypoglycemia Levofloxacin 750 mg/ Device 150 mls @ 100 mls/hr IVPB Q24HR [facility] Last Admin: 12/17/17 03:22 Dose: 150 mls Sodium Chloride (Normal Saline 0.9%) 1,000 mls @ 60 mls/hr IV .[id number] [facility] Stop: 12/17/17 19:22 Last Admin: 12/17/17 03:23 Dose: 1,000 mls Vancomycin HCl 1.25 gm/ Sodium (Chloride) 250 mls @ 166.67 mls/hr IVPB 0400, 1600 [facility] Last Admin: 12/17/17 04:46 Dose: 250 mls Insulin Human Lispro (Humalog) 0 units SC .MODERATE SLIDING SC PRN PRN Reason: Moderate Correctional Scale Latanoprost (Xalatan 0.005% Ophth Soln) 1 drop EA EYE HS [facility] Nicotine (Nicoderm Patch) 14 mg TD Q24HR [facility] Last Admin: 12/17/17 03:23 Dose: Not Given Nystatin (Mycostatin Powder) 1 gm TOP BID [facility] Last Admin: 12/17/17 08:54 Dose: 1 gm Ondansetron HCl (Zofran) 4 mg IVP Q6H PRN PRN Reason: Nausea/Vomiting Stop: 12/17/17 13:00 Ondansetron HCl (Zofran Odt) 4 mg SL Q6H PRN PRN Reason: Nausea/Vomiting Stop: 12/17/17 13:00 Pantoprazole Sodium (Protonix) 40 mg PO DAILY [facility] Last Admin: 12/17/17 08:39 Dose: 40 mg Polyethylene Glycol (Miralax) 17 gm PO DAILY [facility] Last Admin: 12/17/17 08:40 Dose: Not Given Simvastatin (Zocor) 5 mg PO HS [facility] Sodium Chloride (Flush - Normal Saline) 10 ml IVF PRN PRN PRN Reason: Saline Flush Stop: 12/17/17 13:00 Timolol Maleate (Timoptic 0.5% [facility]) 1 drop EA EYE BID [facility] Last Admin: 12/17/17 08:40 Dose: 1 drop
--- NOTE | 2017-12-17 11:50 | CON ---
DATE OF CONSULTATION: 12/17/2017 HISTORY OF PRESENT ILLNESS: This is a 77-year-old female who lives in [place] at the [facility] unit. She has been for about 7-8 years, previously living in [place] with h er . She moved here to be closer to a sister who has also since . The patient is a very poor historian and most all this information has been subsequent information that has been gle aned from medical records. She was hospitalized in October and again this year and has been home ab out a week when she presented with swelling and erythema of her lower legs. She states that her legs have become very weak. Her walking distance has not been affected and she gets around with a walker . She does not really leave the assisted except to walk out the back door to smoke and this has been curtailed recently due to cold weather. She sits most of the day with her feet on the floor. PAST MEDICAL HISTORY: Type 2 diabetes mellitus and hypertension. She evidently has chronic anemia, significant COPD for which she has been cared for. She has glaucoma and dyslipidemia. PAST SURGICAL HISTORY: By her account is cholecystectomy and the records also show cataracts and isha endectomy. SOCIAL HISTORY: The patient smokes typically about a pack of cigarettes a day, although recently has been only smoking 2 cigarettes 3 times a day when she goes outdoors. HOME MEDICATIONS: Inhalers, and nebulizer treatments as well as eyedrops. She is on benazepril, asp irin, metformin, simvastatin, Protonix and Norvasc. ALLERGIES: She has multiple allergies documented in the records including SULFA, although she is amalia ing Bactrim. She also reports allergies to PENICILLIN and QUININE. PHYSICAL EXAMINATION: GENERAL: She is an alert, cooperative lady; however, is unable to answer most any question that she is asked. Her response is "I don't know". NECK: No carotid bruits. The patient is wearing nasal cannula oxygen. CARDIAC: Distant heart sounds. No murmurs. ABDOMEN: Obese. Panniculus hanging over both groins. Mild tenderness diffusely to palpation. SKIN: She has a yeast infection beneath both breasts and rather severe yeast infection in the left g roin and panniculus area. She has some scratches with eschar on both feet and ankles. EXTREMITIES: Her right great toe is some purple along its medial extent. She has dirt under her tiff ls involving both feet. She has excoriated skin of the lower extremities, but at this time, I do not appreciate any significant erythema and she has no edema. On examination, I am unable to palpate a right femoral pulse and did not try to palpate a left femoral pulse due to the infection in her left groin. She was tender to palpation on the right groin and tender to palpation in both popliteal puls es and the left popliteal pulse was present. She has a right dorsalis pedis pulse that is present an d she has good Doppler signals in the dorsalis pedis and posterior tibial vessels bilaterally. CTA was reviewed and demonstrates diffuse noncritical atherosclerotic disease at all levels. PLAN: At this time, the patient has adequate circulation for healing of her scratching wounds. I genao spect that with the scratches, skin break and edema she has developed cellulitis which has already re sponded. Weakness in her legs is less obvious, although her activity level suggests that she will palacios ve progressive weakness. At this time, I do not think there is any intervention to do from a vascula r standpoint other than observe that her right great toe which does not appear to be purple from an e mbolic event or from inadequate circulation. I will follow up with her in the office if needed.
[2017-12-17] MEDS ORDERED: Sod Chloride/Lan/MO/Peet,Wh (Lubriderm) Lotion 180 ml Bottle TOP PRN (13:18)
[2017-12-17] MEDS ORDERED: Azithromycin 250 MG TAB PO SCH (15:15)
[2017-12-17] MEDS ORDERED: Fluconazole 100 MG TAB PO SCH (15:15)
--- NOTE | 2017-12-17 16:40 | CON ---
DATE OF CONSULTATION: 12/17/2017 REASON FOR CONSULTATION: Possible cellulitis. HISTORY OF PRESENT ILLNESS: A 77-year-old who has a history of COPD and type 2 diabetes mellitus as well as coronary artery disease, recently admitted in November a few days ago and managed for right middle lobe pneumonia, discharged on inhalers, levofloxacin and prednisone. She was brought to the hospital this time because of pain and redness in legs. Initial findings included blood pressure 130/90, pulse 112, respirations 20, temperature 98. The patient has erythema in both legs, mild edema and diminished pulses in lower extremities with cyanosis of the distal extremities. The patient had angiogram of the aorta with runoff, which showed moderate atherosclerotic disease throughout all arteries and evidence of hemodynamically significant stenosis in the right external iliac and superficial femoral artery, and left external iliac and superficial femoral artery as well. Consultation with Vascular Surgery was obtained and Dr. Romero thought that she had adequate circulation for healing and with some superimposed cellulitis. At this point, Ms. Andino is awake. She denies any headaches. No visual symptoms, sore throat, odynophagia, dysphagia, no dyspnea or cough, no chest pain, no abdominal pain or diarrhea. No genitourinary symptoms. She has quite a bit of intertriginous maceration and eruption below the breasts and groin areas noted on admission. She also has those areas in lower extremities are described below. She does not have much pain in the lower extremities anymore. PAST MEDICAL HISTORY: COPD, type 2 diabetes, coronary artery disease, chronic smoking, gastritis, hypertension, peripheral vascular disease. PAST SURGICAL HISTORY: Cholecystectomy and appendectomy. ALLERGIES: PENICILLIN with rash. Reportedly allergic to SULFA DRUGS, but is questionable. CURRENT MEDICATIONS: Include Tylenol, [place], Proventil, DuoNeb, Norvasc, Ecotrin, Tessalon, Dulcolax, Alphagan, Tums, dextrose, Colace, glucagon, insulin , Xalatan, levofloxacin, Mycostatin, and vancomycin. SOCIAL HISTORY: Lives in assisted living, still active smoking. FAMILY HISTORY: Hypertension and COPD. PHYSICAL EXAMINATION: VITAL SIGNS: T-max 98.5 and 98.1, blood pressure 101/64, pulse 97 and respiratory rate 16. SKIN: Shows areas of intertriginous eruption with erythema below the breast area and below the abdominal folds, particularly on the left side. She has excoriation of the lower extremities with linear markings, dryness of the skin, somewhat bluish discoloration of the distal feet, it is not clear if this represents some staining of her foot, skin and nails or if it is truly cyanosis. The very tip of the toes does not appear cyanotic and this would implicate some external material that is transferring this bluish color to the superficial layers of the skin epithelium. No lymphadenopathy. HEENT: Ocular movements are conjugate. Pupils are equal and reactive, sclerae white. normal. Conjunctivae normal. Oral cavity with no [place] teeth remaining, moist oral mucosa, no lesions. NECK: Supple, no jugular venous distention, no carotid bruits, no thyromegaly. LUNGS: With symmetric air entry, diminished breath sounds, but no crackles or wheezing. HEART: S1, S2, regular rate. No S3 or S4. ABDOMEN: Soft, not distended. She complained of tenderness, but mostly related to the intertriginous maceration and eruption, particularly on the left side, not truly pain from intra-abdominal tenderness. No ascites, no organomegaly or bladder distention. EXTREMITIES: No joint inflammatory activity noted. Pulses are diminished in popliteal and dorsalis pedis. Capillary refill is around 3-1/2 seconds. She has those areas of linear scratching or excoriations in the distal right and left lower extremity in a very symmetrical distribution. There is no clear cut evidence of cellulitis at this point in time. LABORATORY DATA: Sodium 138, creatinine 0.53. Liver profile normal. Albumin 3.3. White cell count 8.9, hemoglobin 13.6, platelets 288 with 73% neutrophils. Urinalysis was essentially normal. Microbiology, we have blood cultures from 12/03/2017, which were negative. Urine culture, no growth at 48 hours. We have the angiogram noted above. A venogram, which showed no evidence of deep vein thrombosis. ASSESSMENT: 1. Type 2 diabetes. 2. Chronic obstructive pulmonary disease. 3. Actively chronic smoking. 4. Peripheral vascular disease. 5. Some amount of stasis plus dry skin and excoriation of lower extremity, skin. 6. Intertriginous maceration. DISCUSSION: At this point, I would switch her to oral cephalosporin, I do not think she has any more significant cellulitis. I did not see her on admission but this patient was admitted just a few hours ago and if she did have a cellulitis, she would not have improved this quickly. So it is more likely that she did not have cellulitis after all but vascular phenomena as well as dermatitis but we will give her a few days of oral azithromycin. She needs topical moisturizing lotion to the lower extremities, and she needs to continue intertrigo treatment and smoking cessation. Will add oral Diflucan for a few days as well. HI
[2017-12-17] MEDS: Simvastatin 5 MG TAB PO SCH (21:01)
[2017-12-17] MEDS: Latanoprost 0.005% Ophth Soln 2.5 ml Bottle EA EYE SCH (21:05)
[2017-12-18] MEDS: Nicotine 14 MG PATCH TD SCH (02:15)
[2017-12-18 05:43] LABS: Anion Gap 14 mmol/L (10-20); BUN (Urea Nitrogen) 4 mg/dL (9.8-20.1); Calc. Creatinine Clearance 132 mL/min (70-130); Calcium 8.9 mg/dL (7.8-10.44); Carbon Dioxide 26 mmol/L (23-31); Chloride 103 mmol/L (98-107); Estimated GFR-MDRD Greater than 90; Glucose 123 mg/dL (83-110); Potassium 4.1 mmol/L (3.5-5.1); Sodium 139 mmol/L (136-145)
[2017-12-18] MEDS: Fish Oil 1,000 MG CAP PO SCH (08:17)
[2017-12-18] MEDS: Azithromycin 250 MG TAB PO SCH (08:18)
[2017-12-18] MEDS: Fluconazole 100 MG TAB PO SCH (08:18)
[2017-12-18] MEDS: Aspirin 81 mg Enteric Coated Tablet PO SCH (08:18)
[2017-12-18] MEDS: Docusate 100 MG CAP PO SCH ×2 (08:18→20:02)
[2017-12-18] MEDS: Timolol 0.5% Ophth Soln 5 ml Bottle EA EYE SCH ×2 (08:19→20:01)
[2017-12-18] MEDS: Nystatin Powder 15 GM BOT TOP SCH ×2 (08:19→20:04)
[2017-12-18] MEDS: Bisacodyl 5 MG TAB PO SCH (08:19)
[2017-12-18] MEDS: Brimonidine Tartrate 0.2% Ophth Soln 5 ml Bottle EA EYE SCH ×2 (08:20→20:01)
[2017-12-18] MEDS: Polyethylene Glycol 3350 17 GM Packet PO SCH (08:20)
--- NOTE | 2017-12-18 11:18 | PDOC.PN ---
- Subjective Encounter Start Date: 12/18/17 Encounter Start Time: 11:16 Patient seen at bedside. States her legs feel better, less painful. No other complaints. - Objective Vital Signs & Weight: Vital Signs (12 hours) Temp Pulse Resp BP BP Pulse Ox 12/18/17 08:19 107 H 116/73 12/18/17 07:43 98.5 F 107 H 22 H 116/73 96 12/18/17 06:11 97.9 F 103 H 18 132/84 95 12/18/17 00:00 98.3 F 98 18 120/80 96 Weight Weight 182 lb 3.005 oz I&O: 12/17/17 12/18/17 12/19/17 06:59 06:59 06:59 Intake Total 640 2857 Output Total 500 Balance 140 2857 Result Diagrams: 12/17/17 03:10 12/18/17 04:24 Additional Labs: Accuchecks 12/17/17 12/17/17 15:52 11:23 POC Glucose 157 H 156 H Phys Exam - Physical Examination Constitutional: NAD HEENT: moist MMs Neck: no nodes Respiratory: clear to auscultation bilateral Tachycardia Gastrointestinal: soft Musculoskeletal: pulses present Neurological: moves all 4 limbs Psychiatric: A&O x 3 Deviation from normal: Erythema bilaterally, with excoriations, tender to touch Dx/Plan (1) Cellulitis Code(s): L03.90 - CELLULITIS, UNSPECIFIED Status: Acute Qualifiers: Site of cellulitis: extremity Site of cellulitis of extremity: lower extremity (2) PAD (peripheral artery disease) Code(s): I73.9 - PERIPHERAL VASCULAR DISEASE, UNSPECIFIED Status: Chronic (3) COPD (chronic obstructive pulmonary disease) Status: Chronic Qualifiers: COPD type: COPD with acute lower respiratory infection Qualified Code(s): J44.0 - Chronic obstructive pulmonary disease with acute lower respiratory infection (4) Diabetes type 2, controlled Code(s): E11.9 - TYPE 2 DIABETES MELLITUS WITHOUT COMPLICATIONS Status: Chronic Qualifiers: Diabetes mellitus complication status: without complication Diabetes mellitus [facility] insulin use: without termite technician use Qualified Code(s): E11.9 - Type 2 diabetes mellitus without complications (5) Dyslipidemia Code(s): E78.5 - HYPERLIPIDEMIA, UNSPECIFIED Status: Chronic - Plan cont current plan of care, continue antibiotics, social services designee, out of bed/ ambulate, DVT proph w/SCDs * Appreciate [facility] input. Toe discoloration doesn't appear to be an embolic event. Outpatient followup for PVD * Appreciate ID input. Azithromycin and diflucan * Add oral cephalosporin * Elevated D-Dimer. Unclear etiology. Patient remains hypoxic without 02 ( underlying COPD?) and mildly tachycardic. Will check CTA of chest to r/o PE
--- NOTE | 2017-12-18 12:15 | CT ---
CT ARTERIOGRAM CHEST WITH IV CONTRAST AND 3D MIP IMAGING: HISTORY: Chest pain. Dyspnea. COMPARISON: 12/03/17. FINDINGS: There is good contrast opacification of the pulmonary arteries and thoracic aorta with normal branchi ng of the great vessels. Calcification is present within the arterial structures. Infiltrate within the right middle lobe on the previous study has nearly completely resolved. No pleural fluid or pne umothorax are evident. Lungs remain hyperinflated. IMPRESSION: 1. No CT evidence of pulmonary embolus. 2. Chronic obstructive pulmonary disease. 3. Atherosclerosis. POS: CASSIUS
[2017-12-18] MEDS: Amlodipine 5 MG TAB PO SCH (12:40)
[2017-12-18] MEDS: Clindamycin 150 MG CAP PO SCH ×2 (15:26→20:02)
[2017-12-18] MEDS ORDERED: ISOVUE-370 76%-LOCM 1 ML ONE (17:00)
[2017-12-18] MEDS: Simvastatin 5 MG TAB PO SCH (20:02)
[2017-12-18] MEDS: Latanoprost 0.005% Ophth Soln 2.5 ml Bottle EA EYE SCH (20:04)
[2017-12-19] MEDS: Nicotine 14 MG PATCH TD SCH (03:11)
[2017-12-19] MEDS: Clindamycin 150 MG CAP PO SCH ×2 (05:15→15:13)
[2017-12-19] MEDS: Docusate 100 MG CAP PO SCH (09:49)
[2017-12-19] MEDS: Amlodipine 5 MG TAB PO SCH (09:49)
[2017-12-19] MEDS: Azithromycin 250 MG TAB PO SCH (09:49)
[2017-12-19] MEDS: Aspirin 81 mg Enteric Coated Tablet PO SCH (09:50)
[2017-12-19] MEDS: Bisacodyl 5 MG TAB PO SCH (09:50)
[2017-12-19] MEDS: Fish Oil 1,000 MG CAP PO SCH (09:50)
[2017-12-19] MEDS: Polyethylene Glycol 3350 17 GM Packet PO SCH (09:50)
[2017-12-19] MEDS: Fluconazole 100 MG TAB PO SCH (09:50)
[2017-12-19] MEDS: Brimonidine Tartrate 0.2% Ophth Soln 5 ml Bottle EA EYE SCH (09:50)
[2017-12-19] MEDS: Nystatin Powder 15 GM BOT TOP SCH (09:51)
[2017-12-19] MEDS: Timolol 0.5% Ophth Soln 5 ml Bottle EA EYE SCH (09:55)
--- NOTE | 2017-12-19 12:37 | PDOC.EVN ---
Event Note - Event Note Event Note: [id number] dc SUMMARY DICTATED 1. Cellulitis 2. PVD 3. COPD 4. DM type 2 plan: see orders
--- NOTE | 2017-12-19 14:26 | DIS ---
DATE OF DISCHARGE: 12/19/2017 DISCHARGE DIAGNOSES: 1. Peripheral vascular disease. 2. Bilateral lower extremity cellulitis/intrigo. 3. Chronic obstructive pulmonary disease. 4. Diabetes type 2. 5. Hyperlipidemia. DISCHARGE CONDITION: Stable. DISPOSITION: Home. CONSULTANTS DURING THE HOSPITAL STAY: 1. Infectious Disease. 2. Cardiothoracic Vascular Surgery. DISCHARGE MEDICATION: See med rec form. HISTORY OF PRESENT ILLNESS: See HPI. HOSPITAL COURSE: The patient is a 77-year-old female admitted secondary to bilateral lower extremity cellulitis. 1. VCellulitis + PVD The patient was seen by Vascular Surgery and also Infectious Disease. The patient had an arteriogram done which showed some stenosis. Vascular Surgery recommended no further treatment and recommended outpatient followup. The patient was also seen by Infectious Disease and the patient was discharged on p.o. antibiotics. At the time of discharge, the patient is stable. The patient was advised to continue wound care. 2 Chronic obstructive pulmonary disease, Respiratory status monitored during hospital stray. Pt wears oxygen at home and advice dto continue oxygen 3 History of hypertension. Adviced to Continue home blood pressure medications. The patient was stable during the hospital stay. DISCHARGE PHYSICAL EXAMINATION: On date discharge: VITAL SIGNS: Blood pressure is 101/66, temperature 97.9, heart rate 95, respiration rate 16. GENERAL: Patient appears comfortable. SKIN: Chronic skin changes seen. PSYCHIATRIC: Mood calm at this time. NEURO: Cranial nerve system; awake, follows commands. CARDIOVASCULAR: S1, S2 present. No rubs, no gallops, no murmurs. RESPIRATORY: No wheezing, no rhonchi. The patient is stable at the time of discharge to the assisted living. [facility]
[2017-12-19 16:05] VITALS: BP 147/83; TEMP 97.7
--- NOTE | 2017-12-24 22:42 | EKG ---
Test Reason : R/O DVT Blood Pressure : / mmHG Vent. Rate : 102 BPM Atrial Rate : 102 BPM P-R Int : 154 ms QRS Dur : 060 ms QT Int : 338 ms P-R-T Axes : 056 006 039 degrees QTc Int : 440 ms Sinus tachycardia with occasional Premature ventricular complexes Low voltage QRS Borderline ECG Confirmed by DIANNA LANGE ([id number]), research editor LIZETT EDOUARD ([id number] on 12/24/2017 10:42:20 PM Referred By: Confirmed By:DIANNA LANGE
== END 2017-12-19 17:35 ==
LOC: ERS 16:02 → T4-A 22:41
PROVIDERS: ADMIT Internal Medicine; ATTEND Internal Medicine
DX: E11.51 Type 2 diabetes mellitus with diabetic peripheral angiopathy without gangrene (principal); L03.115 Cellulitis of right lower limb; L03.116 Cellulitis of left lower limb; J44.9 Chronic obstructive pulmonary disease, unspecified; E78.5 Hyperlipidemia, unspecified; I10 Essential (primary) hypertension; D50.9 Iron deficiency anemia, unspecified; F17.200 Nicotine dependence, unspecified, uncomplicated; Z88.0 Allergy status to penicillin; Z88.2 Allergy status to sulfonamides; Z88.8 Allergy status to other drugs, medicaments and biological substances; Z88.5 Allergy status to narcotic agent; Z79.84 Long term (current) use of oral hypoglycemic drugs; Z79.899 Other long term (current) drug therapy; Z79.82 Long term (current) use of aspirin
CPT/HCPCS: 71275; 75635; 80048 ×2; 80053; 81003; 82962 ×3; 83605; 83880; 85025 ×2; 85379; 87040; 93005; 93970; 96360; 96361; 96365; 96375; 97110; 97116; 97139 ×2; 97530; 99285; G0378 ×2; G8978; G8979; G8987; G8988; 36415; 36416; A4216; J0692; J1956; J2270; J3370; J3490; J7050